=== PATIENT | male | born 1980 | race African-American/Black ===

== ENCOUNTER 2017-05-01 20:40 | Emergency (ER) | payer SELFPAY ==
--- NOTE | 2017-05-01 20:55 | NUR ---
PT CALLED TO TRIAGE, NO RESPONSE
--- NOTE | 2017-05-01 21:10 | NUR ---
CALLED TO TRIAGE NO RESPONSE.
== END 2017-05-01 21:30 | disposition left against medical advice (07) ==
LOC: ER 20:51
DX: Z53.21 Procedure and treatment not carried out due to patient leaving prior to being seen by health care provider (principal)